=== PATIENT | male | born 1985 | race Caucasian/White ===

== ENCOUNTER 2020-08-15 05:48 | Emergency (ER) | payer SELFPAY ==
--- NOTE | 2020-08-15 06:35 | EDM.PDOCBH ---
<OfficerEmil - Last Filed: 08/15/20 06:36> ED HPI GENERAL MEDICAL PROBLEM - General Stated Complaint: EVAL Time Seen by Provider: 08/15/20 06:26 Source of Information: Reports: Patient, RN Notes Reviewed History Limitations: Reports: Intoxication - History of Present Illness INITIAL COMMENTS - FREE TEXT/NARRATIVE: 35-year-old gentleman presents emergency department today via law enforcement, he does admit to depression as well as suicidal ideation his plan is that he would cut his wrist he also admits to consuming alcohol this evening. States he has been depressed for some time - Related Data Allergies Allergy/AdvReac Type Severity Reaction Status Date / Time No Known Allergies Allergy Verified 08/15/20 06:29 Home Meds: Home Meds lisinopriL [Lisinopril] 1 tab PO DAILY 08/15/20 [History] Past Medical History Cardiovascular History: Reports: Hypertension Social & Family History - Tobacco Use Tobacco Use Status *Q: Never Tobacco User ED ROS GENERAL - Review of Systems Review Of Systems: See Below Constitutional: Reports: No Symptoms HEENT: Reports: No Symptoms Respiratory: Reports: No Symptoms Cardiovascular: Reports: No Symptoms GI/Abdominal: Reports: No Symptoms Psychiatric: Reports: Depression, Suicidal Ideation. Denies: Hallucinations, Homicidal Ideation ED EXAM, BEHAVIORAL HEALTH - Physical Exam Exam: See Below Exam Limited By: Intoxication General Appearance: Alert, WD/WN, No Apparent Distress Respiratory/Chest: No Respiratory Distress, Lungs Clear, Normal Breath Sounds, No Accessory Muscle Use, Chest Non-Tender Cardiovascular: No Murmur, Tachycardia GI/Abdominal: Soft, Non-Tender Psychiatric: Alert, Depressed Mood, Inattentive, Poor Eye Contact, Withdrawn, Suicidal Plan, Suicidal Thoughts. No: Auditory Hallucinations, Visual Hallucinations, Paranoid Thoughts, Threatening Behavior Skin Exam: Warm, Dry, Other (Superficial scratches on left arm) Departure - Departure Disposition: Home, Self-Care 01 Clinical Impression: Intoxication, Suicidal ideation - Discharge Information Instructions: Suicidal Feelings: How to Help Yourself, Alcohol Intoxication, [id number] Referrals: PCP,None [Primary Care Provider] - Forms: ED Department Discharge Care Plan Goals: Avoid abusing alcohol in the future and continue any medications currently prescribed. Sepsis Event Note (ED) - Evaluation Sepsis Screening Result: No Definite Risk <Neal John - Last Filed: 08/15/20 17:52> COURSE, BEHAVIORAL HEALTH COMP - Course Vital Signs: Last Vital Signs Temp 97.6 F 08/15/20 06:27 Pulse 117 H 08/15/20 06:27 Resp 16 08/15/20 06:27 BP 97/55 L 08/15/20 06:27 Pulse Ox 97 08/15/20 06:27 Orders, Labs, Meds: Active Orders 24 hr Category Date Time Status Suicide Precautions [OM.PC] Routine Oth 08/15/20 06:36 Ordered Laboratory Tests 08/15/20 08/15/20 08/15/20 Range/Units 06:37 06:41 06:41 WBC 10.9 (4.5-11.0) K/uL RBC 6.21 H (4.30-5.90) M/uL Hgb 18.2 H* (12.0-15.0) g/dL Hct 55.3 H (40.0-54.0) % MCV 89 (80-98) fL MCH 29 (27-31) pg MCHC 33 (32-36) % Plt Count 329 (150-400) K/uL Neut % (Auto) 55 (36-66) % Lymph % (Auto) 24 (24-44) % [place] % (Auto) 12 H (2-6) % Eos % (Auto) 8 H (2-4) % Baso % (Auto) 1 (0-1) % Sodium 138 L (140-148) mmol/L Potassium 3.9 (3.6-5.2) mmol/L Chloride 103 (100-108) mmol/L Carbon Dioxide 24 (21-32) mmol/L Anion Gap 14.9 H (5.0-14.0) mmol/L BUN 17 (7-18) mg/dL Creatinine 1.2 (0.8-1.3) mg/dL Est Cr Clr Drug Dosing 106.49 mL/min Estimated GFR (MDRD) > 60 (>60) Glucose 103 (74-106) mg/dL Calcium 9.0 (8.5-10.1) mg/dL Total Bilirubin 0.3 (0.2-1.0) mg/dL AST 63 H (15-37) U/L ALT 159 H (12-78) U/L Alkaline Phosphatase 88 (46-116) U/L Total Protein 8.1 (6.4-8.2) g/dL Albumin 3.6 (3.4-5.0) g/dL Globulin 4.5 H (2.3-3.5) g/dL Albumin/Globulin Ratio 0.8 L (1.2-2.2) TSH, Ultra Sensitive (0.358-3.740) uIU/mL Urine Opiates Screen Negative (NEGATIVE) Ur Oxycodone Screen Negative (NEGATIVE) Urine Methadone Screen Negative (NEGATIVE) Ur Propoxyphene Screen Negative (NEGATIVE) Ur Barbiturates Screen Negative (NEGATIVE) Ur Tricyclics Screen Negative (NEGATIVE) Ur Phencyclidine Scrn Negative (NEGATIVE) Ur Amphetamine Screen Negative (NEGATIVE) U Methamphetamines Scrn Negative (NEGATIVE) Urine MDMA Screen Negative (NEGATIVE) U Benzodiazepines Scrn Negative (NEGATIVE) U Cocaine Metab Screen Negative (NEGATIVE) U Marijuana (THC) Screen Negative (NEGATIVE) Ethyl Alcohol mg/dL 08/15/20 08/15/20 Range/Units 06:41 06:41 WBC (4.5-11.0) K/uL RBC (4.30-5.90) M/uL Hgb (12.0-15.0) g/dL Hct (40.0-54.0) % MCV (80-98) fL MCH (27-31) pg MCHC (32-36) % Plt Count (150-400) K/uL Neut % (Auto) (36-66) % Lymph % (Auto) (24-44) % [place] % (Auto) (2-6) % Eos % (Auto) (2-4) % Baso % (Auto) (0-1) % Sodium (140-148) mmol/L Potassium (3.6-5.2) mmol/L Chloride (100-108) mmol/L Carbon Dioxide (21-32) mmol/L Anion Gap (5.0-14.0) mmol/L BUN (7-18) mg/dL Creatinine (0.8-1.3) mg/dL Est Cr Clr Drug Dosing mL/min Estimated GFR (MDRD) (>60) Glucose (74-106) mg/dL Calcium (8.5-10.1) mg/dL Total Bilirubin (0.2-1.0) mg/dL AST (15-37) U/L ALT (12-78) U/L Alkaline Phosphatase (46-116) U/L Total Protein (6.4-8.2) g/dL Albumin (3.4-5.0) g/dL Globulin (2.3-3.5) g/dL Albumin/Globulin Ratio (1.2-2.2) TSH, Ultra Sensitive 1.225 (0.358-3.740) uIU/mL Urine Opiates Screen (NEGATIVE) Ur Oxycodone Screen (NEGATIVE) Urine Methadone Screen (NEGATIVE) Ur Propoxyphene Screen (NEGATIVE) Ur Barbiturates Screen (NEGATIVE) Ur Tricyclics Screen (NEGATIVE) Ur Phencyclidine Scrn (NEGATIVE) Ur Amphetamine Screen (NEGATIVE) U Methamphetamines Scrn (NEGATIVE) Urine MDMA Screen (NEGATIVE) U Benzodiazepines Scrn (NEGATIVE) U Cocaine Metab Screen (NEGATIVE) U Marijuana (THC) Screen (NEGATIVE) Ethyl Alcohol 226 mg/dL Re-Assessment/Re-Exam: 35-year-old male arrived intoxicated and depressed with suicidal ideation initially seen by Officer. Care was turned over to myself pending him sobering up and reassessment. 7 hours later, the patient was remorseful, had no intention of self-harm and said it was "the alcohol". He claims he had no intention of hurting himself and wanted to be discharged so was allowed to find a ride home. Departure - Departure Time of Disposition: 15:24 Sepsis Event Note (ED) - Focused Exam Vital Signs: Vital Signs Temp Pulse Resp BP Pulse Ox 08/15/20 06:27 97.6 F 117 H 16 97/55 L 97
== END 2020-08-15 15:20 | disposition home or self-care (01) ==
LOC: JP.ED 05:48
DX: S60.812A Abrasion of left wrist, initial encounter (principal); I10 Essential (primary) hypertension; F10.129 Alcohol abuse with intoxication, unspecified; Z79.899 Other long term (current) drug therapy; Y90.7 Blood alcohol level of 200-239 mg/100 ml; X78.9XXA Intentional self-harm by unspecified sharp object, initial encounter
CPT/HCPCS: 36415; 80053; 80305-QW; 80307; 84443; 85025; 99283; 99285